=== PATIENT | male | born 1980 | race African-American/Black ===

== ENCOUNTER 2018-09-08 21:12 | Emergency (ER) | payer BC, OTHER ==
--- NOTE | 2018-09-08 21:34 | PDOC ---
Rapid Medical Evaluation Time Seen by Provider: 09/08/18 21:33 Medical Evaluation: Allergies Allergy/AdvReac Type Severity Reaction Status Date / Time No Known Allergies Allergy Verified 08/26/15 17:26 09/08/18 21:33 I have performed a brief in-person evaluation of this patient. The patient presents with a chief complaint of: pain to R groin s/p heavy lifting today at work, denies hx of hernia, denies testicular pain Pertinent physical exam findings: NA I have ordered the following: nothing The patient will proceed to the ED for further evaluation.
[2018-09-08 21:36] VITALS: BP 144/92; PULSE 69; TEMP 98; BMI 31.9
--- NOTE | 2018-09-08 23:40 | PDOC ---
History of Present Illness - General Chief Complaint: Pain, Acute Stated Complaint: STOMACH PAIN Time Seen by Provider: 09/08/18 21:33 - History of Present Illness Initial Comments: The pt is a 37M w/ a history of gential herpes who presents for an evaluation of an outbreak. The pt recent re-obtained his insurance but has not been able to establish PMD care. He reports taking acyclovir previously. Denies any other symptoms or complaints. Denies new sexual partners, concerns for other STIs 09/08/18 23:36 Past History - Past Medical History Allergies/Adverse Reactions: Allergies Allergy/AdvReac Type Severity Reaction Status Date / Time No Known Allergies Allergy Verified 08/26/15 17:26 Home Medications: Ambulatory Orders Acyclovir [Zovirax -] 400 mg PO TID #10 tablet 09/08/18 COPD: No CHF: No - Immunization History Immunization Up to Date: No - Suicide/Smoking/Psychosocial Hx Smoking History: Unknown if ever smoked Have you smoked in the past 12 months: No Number of Cigarettes Smoked Daily: 3 Information on smoking cessation initiated: No 'Breaking Loose' booklet given: 08/26/15 Hx Alcohol Use: No Drug/Substance Use Hx: No Substance Use Type: None *Physical Exam - Vital Signs Last Vital Signs Temp Pulse Resp BP Pulse Ox 98.0 F 69 16 144/92 100 09/08/18 21:34 09/08/18 21:34 09/08/18 21:34 09/08/18 21:34 09/08/18 21:34 - Physical Exam Comments: GENERAL: Awake, alert, and oriented to person/place/time, in no acute distress HEAD: No signs of trauma, normocephalic, atraumatic EYES: PERRLA, EOMI, sclera anicteric, conjunctiva clear LUNGS: No distress, speaks full sentences, clear to auscultation bilaterally HEART: Regular rate and rhythm, normal S1 and S2, no murmurs appreciated, peripheral pulses normal and equal bilaterally : uncircumcised, two penile shaft herpetic lesions, one lesion on right scrotum EXTREMITIES: Normal inspection, Normal range of motion, no edema. No clubbing or cyanosis NEUROLOGICAL: Cranial nerves II through XII grossly intact. Normal speech, normal gait SKIN: Warm, Dry, lesions as above 09/08/18 23:52 Medical Decision Making - Medical Decision Making The pt is a 37M w/ a history of genital herpes who presents for evaluation of an outbreak. ED Course Pt w/ genital herpes outbreak Will Rx Acyclovir Plan for D/C w/ PCP f/u Discharge instructions and return precautions given Pt in agreement and verbalized understanding Dispo: home 09/08/18 23:54 *DC/Admit/Observation/Transfer Diagnosis at time of Disposition: Genital herpes Qualifiers: Herpes simplex infection site: unspecified Qualified Code(s): A60.00 - Herpesviral infection of urogenital system, unspecified - Discharge Dispostion Disposition: HOME Condition at time of disposition: Stable Decision to Admit order: No - Prescriptions Prescriptions: Acyclovir [Zovirax -] 400 mg PO TID #10 tablet - Referrals - Patient Instructions Printed Discharge Instructions: DI for Genital Herpes Additional Instructions: You were seen in the Emergency Department for evaluation of a herpes simplex outbreak. You were prescribed acyclovir three times a day for 5 days. It was sent to the pharmacy you specified. Review the handout provided at discharge. Return to the Emergency Department if you develop fevers/chills, worsening symptoms, or any new/concerning symptoms. - Post Discharge Activity
--- NOTE | 2018-09-08 23:57 | PDOC ---
Documentation entered by Jefe Fontenot SCRIBE, acting as scribe for Natali Kitchen DO. Natali Kitchen DO: This documentation has been prepared by the Corie roche Xhesika, SCRIBE, under my direction and personally reviewed by me in its entirety. I confirm that the documentation accurately reflects all work, treatment, procedures, and medical decision making performed by me. Attending Attestation - Resident Resident Name: Rob Campbell - ED Attending Attestation I have performed the following: I have examined & evaluated the patient, The case was reviewed & discussed with the resident, I agree w/resident's findings & plan, Exceptions are as noted - HPI HPI: 09/08/18 23:57 The patient is a 37 year old male, with a significant PMH of genital herpes who presents to the emergency department with a reoccurrence of herpes outbreak. The patient states he has taken acyclovir previously. The patient denies any other symptoms or complaints at this time. The patient denies new sexual partners. The patient denies sweating or dizziness. Denies fever, chills, nausea, vomit, diarrhea and constipation. Denies dysuria, frequency, urgency and hematuria. Allergies: NKA - Physicial Exam PE: 09/08/18 23:58 ABDOMEN: Soft, nontender, normoactive bowel sounds. No guarding, no rebound. No masses GENITALIA: (+) 2 herpetic lesions of R lateral shaft of penis and R scrotum. No testicular pain. (+) uncircumcision. ambulatory with a steady gait 09/09/18 00:29 - Medical Decision Making 09/08/18 23:51 I, Dr. Natali Kitchen DO, attest that this document has been prepared under my direction and personally reviewed by me in its entirety. I further attest, that it accurately reflects all work, treatment, procedures and medical decision -making performed by me. 09/08/18 23:51 37yo male with hx of genital herpes with recurrence of herpetic lesions -pt here for new Rx for acyclovir -no penile discharge -lesions to penile shaft and scrotum -no other lesions/lumps bumps -no dysuria -will regive acyclovir -answered all questions -stable for dc to home
== END 2018-09-09 00:05 | disposition home or self-care (01) ==
LOC: JER 21:12
DX: A60.00 Herpesviral infection of urogenital system, unspecified (principal)
CPT/HCPCS: 99281-25

== ENCOUNTER 2020-07-30 20:30 | Emergency (ER) | payer BC, OTHER ==
[2020-07-30 20:43] VITALS: BP 145/82; PULSE 70; TEMP 97; BMI 30.4
== END 2020-07-30 22:13 | disposition home or self-care (01) ==
LOC: JER 20:30
DX: A60.01 Herpesviral infection of penis (principal)
CPT/HCPCS: 99281-25

== ENCOUNTER 2020-12-01 08:40 | Emergency (ER) | payer OTHER ==
[2020-12-01 08:46] VITALS: BP 147/90; PULSE 73; TEMP 97.8
[2020-12-01 08:50] VITALS: BMI 31.9
== END 2020-12-01 09:45 | disposition home or self-care (01) ==
LOC: JER 08:40
DX: A60.01 Herpesviral infection of penis (principal)
CPT/HCPCS: 99283-25

== ENCOUNTER 2022-03-17 18:28 | Emergency (ER) | payer OTHER ==
[2022-03-17 19:10] VITALS: BP 139/82; PULSE 67; RESP 18; TEMP 99.6; BMI 31.0
[2022-03-17] MEDS ORDERED: DIPHTH,PERTUSS(ACELL),TET 0.5 ML DISP.SYRIN IM ONE ×2 (19:23→19:37)
== END 2022-03-17 20:11 | disposition home or self-care (01) ==
LOC: JER 18:28 → JERFT 18:28
PROC: 3E0234Z Introduction of Serum, Toxoid and Vaccine into Muscle, Percutaneous Approach (ICD-10-PCS; principal; 2022-03-17)
DX: S91.331A Puncture wound without foreign body, right foot, initial encounter (principal); W45.0XXA Nail entering through skin, initial encounter
CPT/HCPCS: 73630-TC-RT-FY; 90471; 90715; 99283-25